=== PATIENT | male | born 1975 | race Caucasian/White ===

== ENCOUNTER 2023-03-16 09:48 | Emergency (ER) | payer BC, SELFPAY ==
[2023-03-16 10:45] LABS: #Eosinphils 0.1 10x3/uL (0.0-0.5); #Monocytes 0.5 10x3/uL (0.0-1.1); #Neutrophils 9.1 10x3/uL (1.5-8.4); %Basophils 0.3 % (0.0-2.0); %Eosinophils 0.9 % (0.0-6.0); %Lymphocytes 13.8 % (18.0-47.0); %Monocytes 4.3 % (0.0-10.0); %Neutrophils 80.3 % (40.0-75.0); Hematocrit 48.6 % (38.8-50.0); Hemoglobin 17.2 g/dL (13.5-17.5); Mean Corpuscular HGB CONC 35.4 g/dL (32.0-36.0); Mean Corpuscular Hemoglobin 31.3 pg (27.0-33.0); Mean Corpuscular Volume 88.4 fl (81.2-95.1); Mean Platelet Volume 9.1 fl (7.4-10.4); Platelet Count 295 10x3/uL (150-450); RBC Distribution Width 11.7 % (11.5-14.5); White Blood Cell (WBC) Count 11.4 10x3/uL (3.5-10.5)
[2023-03-16 11:10] LABS: ALT (SGPT) 107 U/L (8-55); AST (SGOT) 31 U/L (5-34); Albumin 4.7 g/dL (3.5-5.0); Alkaline Phosphatase 99 U/L (40-110); Anion Gap 12 mmol/L (10-20); BUN (Urea Nitrogen) 16 mg/dL (8.9-20.6); Bilirubin, Total 0.8 mg/dL (0.2-1.2); Calc. Creatinine Clearance 0 mL/min (70-130); Calcium 9.4 mg/dL (7.8-10.44); Carbon Dioxide 24 mmol/L (22-29); Chloride 108 mmol/L (98-107); Estimated GFR 107; Globulin 2.8 g/dL (2.4-3.5); Glucose 111 mg/dL (70-105); Potassium 3.8 mmol/L (3.5-5.1); Protein, Total 7.5 g/dL (6.0-8.3); Sodium 140 mmol/L (136-145)
== END 2023-03-16 12:13 | disposition home or self-care (01) ==
LOC: CSHERS 09:48
DX: R20.2 Paresthesia of skin (principal); F43.0 Acute stress reaction; F17.210 Nicotine dependence, cigarettes, uncomplicated
CPT/HCPCS: 36416; 80053; 85025; 93005